=== PATIENT | female | born 1970 | race Caucasian/White ===

== ENCOUNTER 2016-09-22 17:07 | Emergency (ER) | payer SELFPAY ==
[~2016-09-22] VITALS: Ht 160 cm; Wt 91.0 kg
[2016-09-22 17:10] VITALS: BP 113/76; PULSE 93; RESP 16; TEMP 98.8; O2SAT 98
[2016-09-22 17:30] VITALS: BP 107/67; PULSE 84; RESP 16; O2SAT 97
[2016-09-22] MEDS ORDERED: SODIUM CHLOR 0.9% 1000 ML INJ 1,000 ML IV ONE (17:45)
[2016-09-22] MEDS ORDERED: ONDANSETRON HCL 4 MG/2 ML VIAL IV PUSH ONE (17:45)
[2016-09-22] MEDS ORDERED: KETOROLAC TROMETHAMINE 30 MG/ML (IVP) VIAL IV PUSH ONE (17:45)
--- NOTE | 2016-09-22 17:59 | RADHPO ---
EXAM DATE/TIME: 09/22/2016 17:49 [place] COMPARISON: No previous studies available for comparison. INDICATIONS : Cough and vomiting. MEDICAL HISTORY : None. SURGICAL HISTORY : None. ENCOUNTER: Initial ACUITY: 1 day PAIN SCORE: 3/10 LOCATION: Bilateral chest FINDINGS: A single view of the chest demonstrates the lungs to be symmetrically aerated without evidence of mas s, infiltrate or effusion. The cardiomediastinal contours are unremarkable. Osseous structures are intact. CONCLUSION: Normal examination. Guru Gray Jr., MD on September 22, 2016 at 17:57 Board Certified Radiologist. This report was verified electronically.
--- NOTE | 2016-09-22 18:24 | PD ---
HPI Chief Complaint: GI Complaint Time Seen by Provider: 17:33 Travel History International Travel<30 days: No Contact w/Intl Traveler<30days: No Traveled to known affect area: No History of Present Illness HPI 46yo F with PMH of migraine headache and juvenile epilepsy presents to the ED with c/o headache for 2 days. States it feels like her usual headache but she was not able to keep down the alleve because of vomiting. Headache is occipital and associated with photophobia, nausea, vomiting. Denies any fever, neck pain, focal weakness or numbness. Pt has no insurance and does not have a neurologist she follows up with. She was diagnosed with migraine when she had insurance. Pt also with chronic cough since but denies any chest pain or sob. PFSH Past Medical History Cancer: No Diabetes: No Diminished Hearing: No Glaucoma: No Hepatitis: No Hiatal Hernia: No Hypertension: No Kidney Stones: Yes Immunizations Current: Yes Seizures: Yes (EPILEPSY) Thyroid Disease: No Tetanus Vaccination: Unknown Influenza Vaccination: No ?: Not LMP: 09/10/2016 Past Surgical History Abdominal Surgery: Yes (laproscopy) Genitourinary Surgery: Yes (ESWL KIDNEY STONES) Other Surgery: Yes (LITHOTRIPSY FOR KIDNEY STONE REMOVAL) Social History Alcohol Use: Yes (occ) Tobacco Use: No Substance Use: No Allergies-Medications (Allergen,Severity, Reaction): Coded Allergies: Lamictal (Verified Allergy, Severe, Rash, 09/22/16) Potassium (Verified Allergy, Severe, RASH, 09/22/16) Reported Meds & Prescriptions Reported Meds & Active Scripts Active No Active Prescriptions or Reported Medications Review of Systems Except as stated in HPI: all other systems reviewed are Neg Physical Exam Narrative GENERAL: 46yo F not in acute distress. SKIN: Warm and dry. HEAD: Atraumatic. Normocephalic. EYES: Pupils equal and round. No scleral icterus. No injection or drainage. ENT: Throat: Clear. NECK: Trachea midline. No JVD. CARDIOVASCULAR: Regular rate and rhythm. No murmur appreciated. RESPIRATORY: No accessory muscle use. Clear to auscultation. Breath sounds equal bilaterally. GASTROINTESTINAL: Abdomen soft, non-tender, nondistended. No rebound tenderness or guarding. MUSCULOSKELETAL: No obvious deformities. No clubbing. No cyanosis. No edema. NEUROLOGICAL: Awake and alert. No obvious cranial nerve deficits. Motor grossly within normal limits. Normal speech. PSYCHIATRIC: Appropriate mood and affect; insight and judgment normal. Data Data Last Documented VS Vital Signs Date Time Temp Pulse Resp B/P Pulse Ox O2 Delivery O2 Flow Rate FiO2 09/22/16 18:37 79 16 106/56 09/22/16 17:30 97 Room Air 09/22/16 17:10 98.8 Orders Ondansetron Inj (Zofran Inj) (09/22/16 17:45) Ketorolac Inj (Toradol Inj) (09/22/16 17:45) Sodium Chlor 0.9% 1000 Ml Inj (Ns 1000 M (09/22/16 17:45) Chest, Single Ap (09/22/16 ) MDM Medical Decision Making Medical Screen Exam Complete: Yes Emergency Medical Condition: Yes Differential Diagnosis Migraine headache vs. sinus headache vs. bronchitis vs. post nasal drip Narrative Course 46yo F with headache for 2 days that feels like her usual headache. Pt usually takes alleve for her headache but has been vomiting and not keeping it down. No red flags. No focal neurologic deficits on exam. CXR obtained since pt has been having chronic cough. CXR negative. Pt given NS IVF x1, zofran 4mg and toradol 30mg IV and reevaluated at bedside. Headache has resolved. Pt does complain of some nasal congestion. Pt is no longer nauseous and is tolerating PO. Return precautions given. Diagnosis Primary Impression: Migraine headache Qualified Code: G43.909 - Migraine without status migrainosus, not intractable , unspecified migraine type Patient Instructions: General Instructions Departure Forms: Tests/Procedures Additional Instructions: Please follow up with medicine clinic in 3-7 days. Return to the ED if symptoms worsen. Med/Other Pt SpecificInfo: Prescription(s) given Scripts Ibuprofen 600 Mg [id number] Mg PO Q8HR PRN (PAIN) #20 TAB Ref 0 Prov:Cathi Smith DO 09/22/16 Dextromethorphan Polistirex Liq (Robitussin 12 Hour Cough Liq)30 Mg/5 Ml Sus10 Ml PO Q12H PRN (COUGH) 5 Days Ref 0 Prov:Ctahi Smith DO 09/22/16 Fluticasone Nasal [place] 50 Mcg/Act Naspr50 Mcg EACH NARE BID #1 BOTTLE Ref 0 50 mcg/spray Prov:Cathi Smith DO 09/22/16 Ondansetron Odt (Zofran Odt)4 Mg Tab4 Mg SL Q6HR PRN (Nausea/Vomiting) #7 TAB Ref 0 Prov:Cathi Smith DO 09/22/16 Disposition: 01 DISCHARGE HOME Condition: Stable Cathi Smith DO Sep 22, 2016 18:24
[2016-09-22 18:37] VITALS: BP 106/56; PULSE 79; RESP 16
[2016-09-22] MEDS ORDERED: IBUP-232 PO (18:58)
[2016-09-22] MEDS ORDERED: FLUT50SP EACH NARE (18:58)
[2016-09-22] MEDS ORDERED: ZOFR4TAB3 SL (18:58)
[2016-09-22] MEDS ORDERED: DEXT1SUS PO (18:58)
[2016-09-22 19:26] VITALS: BP 98/59; TEMP 97.9
== END 2016-09-22 19:28 | disposition home or self-care (01) ==
LOC: PHED 17:07
DX: G43.909 Migraine, unspecified, not intractable, without status migrainosus (principal)
CPT/HCPCS: 71010; 96361; 96374; 96375; 99284; J1885; J2405; J7030